=== PATIENT | female | born 1990 | race African-American/Black ===

== ENCOUNTER 2022-11-18 13:41 | Emergency (ER) | payer OTHER ==
[2022-11-18 13:50] VITALS: BP 118/72; PULSE 89; RESP 18; TEMP 98.2; BMI 24.7
[2022-11-18] MEDS ORDERED: ACETAMINOPHEN 500 MG TABLET (FP) PO ONE (14:50)
[2022-11-18 14:56] LABS: BASO % 0.4 % (0-2.0); EOS % 0.5 % (0-4.5); HEMOGLOBIN 12.1 GM/dL (10.7-15.3); LYMPH % 18.7 % (8-40); MCH 30.7 pg (25.7-33.7); MCHC 35.6 g/dl (32.0-36.0); MEAN CELL VOLUME 86.3 fl (80-96); MEAN PLT VOLUME 7.6 fl (7.5-11.1); NEUT % 72.4 % (42.8-82.8); PLATELET COUNT 337 10^3/uL (134-434); RBC 3.93 M/mm3 (3.60-5.2); WHITE BLOOD COUNT 11.2 K/mm3 (4.0-10.0)
[2022-11-18] MEDS ORDERED: ACETAMINOPHEN 500 MG TABLET (FP) ONE (15:02)
[2022-11-18 15:36] LABS: PH,URINE 6.5 (5.0-8.0); URINE APPEARANCE CLEAR; URINE BILIRUBIN NEGATIVE (NEGATIVE); URINE COLOR YELLOW; URINE GLUCOSE (UA) NEGATIVE (NEGATIVE); URINE KETONE NEGATIVE (NEGATIVE); URINE LEUK ESTERASE NEGATIVE (NEGATIVE); URINE NITRITE NEGATIVE (NEGATIVE); URINE PROTEIN NEGATIVE (NEGATIVE); URINE UROBILINOGEN 0.2 mg/dL (0.2-1.0)
[2022-11-18 15:47] LABS: POTASSIUM 3.5 mmol/L (3.5-5.1)
[2022-11-18 15:49] LABS: ALBUMIN 4.3 g/dl (3.4-5.0); BLOOD UREA NITROGEN 8.9 mg/dL (7-18); CALCIUM 9.3 mg/dL (8.5-10.1)
[2022-11-18 15:53] LABS: CREATININE 0.6 mg/dL (0.55-1.3)
[2022-11-18 15:55] LABS: BILIRUBIN,TOTAL 0.3 mg/dL (0.2-1); TOT PROT 8.2 g/dl (6.4-8.2)
[2022-11-18 15:56] LABS: HCG,QUALITATIVE URINE Positive
[2022-11-18] MEDS ORDERED: ONDANSETRON *ODT* 4 MG TABLET SL ONE (16:40)
[2022-11-18] MEDS ORDERED: ACETAMINOPHEN 160 MG/5 ML *Children Solution PO ONE (16:40)
[2022-11-18] MEDS ORDERED: ONDANSETRON *ODT* 4 MG TABLET ONE (16:51)
== END 2022-11-18 16:52 | disposition home or self-care (01) ==
LOC: JER 13:41
DX: O26.891 Other specified pregnancy related conditions, first trimester (principal); R10.2 Pelvic and perineal pain; R10.32 Left lower quadrant pain; Z3A.01 Less than 8 weeks gestation of pregnancy
CPT/HCPCS: 36415; 76817-TC; 80053; 81003; 84702; 84703; 85025; 86850; 86900; 86901; 87086; 99284-25